=== PATIENT | female | born 1935 | race Caucasian/White ===

== ENCOUNTER → 2016-10-19 | Outpatient (CLI) | payer OTHER, BC | LOC: MOB LAB 12:00 | DX: J06.9 Acute upper respiratory infection, unspecified (principal); J02.9 Acute pharyngitis, unspecified; R05 Cough | CPT/HCPCS: 99213; G0463; 87880 ==

== ENCOUNTER 2016-10-28 12:43 | Emergency (ER) | payer OTHER, BC ==
[2016-10-28 13:04] VITALS: RESP 18; TEMP 97.2
--- NOTE | 2016-10-28 19:40 | PDOC ---
Upper Ext Injury HPI - General Chief Complaint: Upper Extremity Problem/Injury Stated Complaint: fall, right elbow/shoulder pain Date Seen by Provider: 10/28/16 Time Seen by Provider: 12:45 Source: POSITIVE: Patient Exam Limitations: POSITIVE: No limitations Nurse's Notes Reviewed & Considered: Yes - History of Present Illness Initial Comments: The patient is an 81 year old female. 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 The wind caught the door and caused the patient to fall onto her right elbow when she states that her right shoulder was "jammed upward". Incident occurred 1 hour [employer]. She's not noticed any deformity or swelling. She has pain in the posterior lateral aspect of her shoulder with abduction. Have you received a tetanus shot in the past 10 years?: Unknown Body Location Affected: REPORTS: Upper Extremity (R) Timing: REPORTS: Abrupt Duration: 1 hour Severity: Moderate Quality: REPORTS: "Pain" Location at Time of Onset: REPORTS: Other ([facility]) Context of Injury: REPORTS: Fall, Direct Blow Modifying Factors: REPORTS: Movement (Especially abduction of right shoulder) Associated Symptoms: DENIES: Arm (R), Arm (L), Tingling Distally, Numbness Distally, Loss of Feeling, Loss of Power, Other Any Prior Injuries Related to Current Complaint?: No - Patient Home Medications Home Medications: Home Medications Ascorbic Acid [Vitamin C] 500 mg PO DAILY 09/09/12 V-Krbjdjv-Hqefdhs B-12 1 each PO DAILY 09/09/12 Calcium 600 + D3 Softgel 1 each PO DAILY 09/09/12 Glucosam HCl/Chondro Joseph A/C/Mn [Glucos-Chond 500 Complex Cp] 1 each PO DAILY 09/09 Lecithin 518 mg PO DAILY 09/09/12 Lutein 10 mg PO DAILY 09/09/12 Magnesium 200 mg PO DAILY 09/09/12 Babbitt-3 Fatty Acids [Babbitt-3] 1,000 mg PO DAILY 09/09/12 Preservision Softgel 1 each PO DAILY 09/09/12 Cholecalciferol (Vitamin D3) [Vitamin D-3] 1 cap PO DAILY cap 09/10/13 Ezetimibe/Simvastatin [Vytorin 10-20 Mg Tablet] 1 tab PO QHS #90 tab 10/26/15 Lactobacillus Combination No.4 [Probiotic] 1 each PO QD cap 04/30/16 Magnesium Hydroxide [Milk Of Magnesia] 2,400 mg PO 2XW 04/30/16 Omeprazole 1 cap PO QD #90 capsule 10/02/16 Levothyroxine Sodium 1 tab PO DAILY #90 tab 10/08/16 HYDROcodone/APAP 5/325 Tab [[place] 5/325 Tab] 1 tab PO Q6H PRN #20 tablet - Patient Allergies Allergies/Adverse Reactions: Allergies Allergy/AdvReac Type Severity Reaction Status Date / Time NARCOTICS AdvReac Intermediate NAUSEA Uncoded 10/28/16 12:47 Past Medical History - heen HEENT History: Cataracts Additional HEENT History: PT HAD A PLUGGED TEAR DUCT IN RIGHT EYE. PER DR ARNOLD, SHE WAS SEEN AND HAD SURGERY BY ANOTHR SURGEON TO OPEN THE DUCT THIS WEEK. CALL PLACED TO DR LEWIS OFFICE TO BE SURE THAT IT IS OK TO PROCEED WITH CATARACT SURGERY ON 03/01/14. PT STATES SHE HAS A (LITTLE PIECE OF PLASTIC) STENT IN THE CORNER OF HER EYE AND SUTURES. SB Cardiovascular History: Hypertension, Hyperlipidemia, Other (please comment) Additional Cardiovasular History: HEART MURMUR Respiratory History: Denies History Additional Respiratory History: SEASONAL ALLERGIES Gastrointestinal History: Denies History Genitourinary History: Denies History Endocrine History: Hypothyroidism Musculoskeletal History: Osteoporosis Prosthesis or Implant: No Neurological History: Migraines Additional Neurological History: RESOLVED MIGRAINES IN 1996 Blood Disorders: Denies History Psychiatric History: Denies History History of Sexually Transmitted Diseases: No Cancer History: Breast, Skin Cancer Treatment / Date(s) of Treatment: 1998 In Past Year Been Physically Harmed or Verbally Threatened: No History of MDRO: No History of Other Communicable Diseases: No Tobacco Use: Never Smoker Alcohol Use: None Substance Use Type: None Previous Surgical History: Yes Type / Date of Surgery: T&A/ APPY/ COLONOSCOPY/ GANGLION CYST X 2/ INGUINAL HERNIA/ LEFT MASTECTOMY/ CATARACT EXT/ BREAST BX/ Anesthesia Reactions: No Malignant Hyperthermia: No Significant Family History: Heart disease Past Medical History Reviewed: Reviewed - No Changes ROS - Limitations ROS Limitations: No Limitations Constitution: REPORTS: Denies Symptoms Cardiovascular: REPORTS: Denies Cardiac Symptoms Respiratory: REPORTS: Denies Resp Symptoms Neurological: REPORTS: Denies Neuro Symptoms Gastrointestinal: REPORTS: Denies GI Symptoms Endocrine: REPORTS: Denies Symptoms Musculoskeletal: REPORTS: Joint Pain (Right shoulder and right elbow), Recent Injury (As above). DENIES: Back Pain, Neck Pain Genitourinary: REPORTS: Denies Symptoms Eyes: REPORTS: Denies Symptoms ENT: REPORTS: Denies Symptoms Skin: REPORTS: Denies Skin Symptoms Lympathic: REPORTS: Denies Lympathic Symptoms Immunologic: POSITIVE: Denies Symptoms Psychiatric: POSITIVE: Denies Psych Symptoms Upper Ext Injury Exam - General Appearance General Appearance: POSITIVE: Alert, Cooperative, No Acute Distress - Extremities Upper Extremity: POSITIVE: Normal Color, Normal Temperature, Soft Tissue Tenderness, Bony Tenderness (See diagram), Skin Intact, Limited ROM, See Diagram. NEGATIVE: Normal ROM (Range of motion limited in abduction and extension, right shoulder), Swelling, Ecchymosis, Deformity, Erythema, Pulse Deficit, Snuff Box Position Tender, Axial Thumb Load Pain Neurovascular/Tendon: POSITIVE: Sensation Normal, Motor Normal, No Vascular Compromise Skin: POSITIVE: Warm, Dry - HEENT HEENT: POSITIVE: Head Inspection Nml - Neck / Back Neck/Back: POSITIVE: Normal Inspection, Non-Tender, Painless ROM - Respiratory / CVS Respiratory / CVS: POSITIVE: Chest Non Tender, No Ecchymosis, Breath Sounds Normal, No Respiratory Distress, Heart Sounds Normal, Regular Rate/Rhythm Peripheral Pulses: Radial (R): 2+, Radial (L): 2+ - Abdomen Abdomen: Soft: (All Quadrants), Normal Bowel Sounds: (All Quadrants), Denies Tenderness: (All Quadrants), No Splenomegaly: (All Quadrants), No Hepatomegaly: (All Quadrants), No Guarding: (All Quadrants), No Rebound: (All Quadrants), No Palpable Pulse: (All Quadrants), No Palpabale Mass: (All Quadrants), No Distention: (All Quadrants), No Rigidity: (All Quadrants) Procedures - Splinting Time Splint Applied: 13:15 Location: right shoulder immobilizer Pre-Proc Neuro Vasc Exam: Normal Splint Type: Shoulder Immobilizer Splint Form: Other (Right shoulder immobilizer) Applied By:: Mid Level Provider Post-Proc Neuro Vasc Exam: Normal Images - Upper Extremities Upper Extremities: 1 - Area of palpable tenderness 2 - Area of palpable tenderness 3 - Mild discomfort on firm palpation Upper Ext Injury Progress - Results Reviewed by me Xrays/CTs/US Reviewed by me: Yes Discussed with Radiologist: No (X-ray of right shoulder and elbow shows no fractures or dislocations seen by me, radiologist interpretation pending.) Radiology Findings: X-ray right shoulder and elbow shows no fractures or dislocations seen by me; radiologist interpretation pending. - Patient's Progress Pain Medication Addressed: POSITIVE: Yes (Advil or Tylenol for [id number] pain; hydrocodone/APAP one every 6 hours for more severe pain.) School/Work Release Addressed: POSITIVE: Not Applicable Re-Examine Time: 13:33 Status: POSITIVE: Improved (Pain lasts with shoulder immobilizer), Re-Examined - Consult Counseled: POSITIVE: Patient, RE: Radiology Results, RE: DX, RE: Need for F/U Patient Care Time - Estimated PCT Patient Care Time (In Minutes): 24 Vital Signs - Recent Vital Signs Vital Signs: Vital Signs (Last 8 hours) Temp Pulse Resp BP Pulse Ox 10/28/16 12:53 97.2 F 74 18 158/83 96 - VS Reviewed Vital Signs Reviewed: Yes Discharge Clinical Impression: Shoulder strain Discharge Disposition: Discharged to Home Condition: Fair Prescriptions / Orders: HYDROcodone/APAP 5/325 Tab [[place] 5/325 Tab] 1 tab PO Q6H PRN #20 tablet PRN Reason: Pain Patient Instructions Given at Discharge: Contusion in Adults (ED), Shoulder Sprain (ED) Additional Instructions: Wear shoulder immobilizer for 3 or 4 days. Follow-up in the orthopedic clinic in 3 or 4 days. Tylenol or Advil for [id number] pain. Hydrocodone/APAP, one every 6 hours for more severe pain. Return here anytime if condition worsens in any way. Follow Up With: TREMAYNE CHÁVEZ [Primary Care Provider] - (Instructions as above. Follow-up in the orthopedic clinic. Return here anytime if condition worsens.)
--- NOTE | 2016-10-28 22:15 | DI ---
XR ELBOW 2VW,10/28/2016 12:52 PM: Clinical History: Elbow pain. Previous Exam: None at this facility. Findings: 3 views of the right elbow are obtained, and demonstrate anatomic alignment without fractures. There is a small curvilinear calcified density over the olecranon. There is no evidence of elbow joint effusion. Impression: Normal right elbow.
--- NOTE | 2016-10-28 22:15 | DI ---
XR SHOULDER MIN 2VW,10/28/2016 12:51 PM: Clinical History: Trauma Previous Exam: None at this facility. Findings: 3 views of the right shoulder are obtained, and demonstrate anatomic alignment without fractures. The re are ossified lymph nodes within the mediastinum. Mild degenerative changes of the cervical spine a nd thoracic spine. Impression: No fractures.
== END 2016-10-28 13:45 | disposition home or self-care (01) ==
LOC: ER 12:43
DX: S46.911A Strain of unspecified muscle, fascia and tendon at shoulder and upper arm level, right arm, initial encounter (principal); M25.521 Pain in right elbow; W18.39XA Other fall on same level, initial encounter; Y92.22 Religious institution as the place of occurrence of the external cause
CPT/HCPCS: 73030; 73070; 99282

== ENCOUNTER → 2016-10-29 | Outpatient (CLI) | payer OTHER, BC | LOC: MMPC 10:00 | PROVIDERS: ATTEND Orthopaedic Surgery | DX: M25.511 Pain in right shoulder (principal) | CPT/HCPCS: 99203; G0463 ==

== ENCOUNTER → 2016-10-31 | Outpatient (CLI) | payer OTHER, BC ==
[2016-10-31 09:08] LABS: BILIRUBIN,TOTAL 0.4 mg/dL (0.3-1.2); BUN/CREATININE RATIO 17.77 (6-20); CALCIUM 9.7 mg/dL (8.7-10.7); CREATININE 0.9 mg/dL (0.50-1.20); LDL CHOLESTEROL,CALCULATED 132.8 mg/dL
== END ==
LOC: LAB 08:33
PROVIDERS: ATTEND Nurse Practitioner Family
DX: E78.5 Hyperlipidemia, unspecified (principal); E03.9 Hypothyroidism, unspecified; I10 Essential (primary) hypertension
CPT/HCPCS: 36415; 80048; 82247; 82465; 82550; 82977; 83718; 84075; 84443; 84450; 84460; 84478

== ENCOUNTER → 2016-11-01 | Outpatient (CLI) | payer OTHER, BC | LOC: MMPC 09:00 | PROVIDERS: ATTEND Nurse Practitioner Family | DX: E78.5 Hyperlipidemia, unspecified (principal); E03.9 Hypothyroidism, unspecified; M81.0 Age-related osteoporosis without current pathological fracture | CPT/HCPCS: 99214; G0463; J0897 ==

== ENCOUNTER → 2016-11-06 | Outpatient (CLI) | payer OTHER, BC ==
--- NOTE | 2016-11-06 16:04 | DI ---
CT BONE DENSITOMETRY OF THE SPINE AND HIP, 11/06/2016 2:15 PM : Clinical History: Asymptomatic post menopausal patient. Screening. Previous Exam: None at this facility. 3D Quantitative CT (QCT) Bone Mineral Densitometry: The [place] scans are normal. Low dose scans are obtained of the lumbar spine and sampling is obtaine d through the midbodies of L1 and L2. The average volumetric bone mineral density (BMD) of the lumbar spine is 77.7 mg/cm3. This value corresponds to a volumetric T-score of -3.4 and Z-score of 0.3 as a ssessed by this BMD software. Volumetric 3D QCT and areal DEXA T-scores and Z-scores are not directly equivalent. Using the [employer]'s (ACR) volumetric QCT trabecular spine BMD conv ersion table that is closely equivalent to the areal WHO diagnostic categories, this patient falls in to the category of osteoporosis. CT X-Ray Absorptiometry (CTXA) Hip Bone Mineral Densitometry: Low dose scans are obtained through the hips for assessment of bone mineral density (BMD) and T-score s and Z-scores of the left hip. Total hip BMD: 0.556 mg/cm2 T-score: -3.2 Z-score: Femoral neck BMD: 0.522 mg/cm2 T-score: -2.5 Z-score: Note: T-scores of the spine and hip exhibit discordant readings approximately 40% of the time in eval uated patients. Changes in BMD determined either by volumetric QCT or areal DEXA are more reliable in assessment of change in a patient's BMD status rather than changes in T-scores. The CTXA hip CT bone mineral density measurements and the resultant T-scores and Z-scores are exact hip DEXA scan equival ents. The femoral neck T-score can be used in the WHO's FRAX program for assessing an untreated patie nt's 10 year fracture risk. 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
== END ==
LOC: CT 14:06
PROVIDERS: ATTEND Nurse Practitioner Family
DX: M81.0 Age-related osteoporosis without current pathological fracture (principal)
CPT/HCPCS: 77078

== ENCOUNTER → 2016-11-12 | Outpatient (CLI) | payer OTHER, BC | LOC: MMPC 10:00 | PROVIDERS: ATTEND Orthopaedic Surgery | DX: S46.911A Strain of unspecified muscle, fascia and tendon at shoulder and upper arm level, right arm, initial encounter (principal) | CPT/HCPCS: 99212 ==

== ENCOUNTER → 2017-04-19 | Outpatient (CLI) | payer OTHER, BC ==
[2017-04-19 08:01] LABS: CHOL/HDL RATIO 3.13 RATIO (0-4.0)
[2017-04-19 08:08] LABS: BUN/CREATININE RATIO 21.25 (6-20); CALCIUM 9.4 mg/dL (8.7-10.7)
== END ==
LOC: LAB 06:58
PROVIDERS: ATTEND Nurse Practitioner Family
DX: E78.5 Hyperlipidemia, unspecified (principal); E03.9 Hypothyroidism, unspecified
CPT/HCPCS: 36415; 80048; 82247; 82465; 82550; 82977; 83718; 84075; 84443; 84450; 84460; 84478

== ENCOUNTER → 2017-05-02 | Outpatient (CLI) | payer OTHER, BC | LOC: MMPC 09:00 | PROVIDERS: ATTEND Nurse Practitioner Family | DX: E78.5 Hyperlipidemia, unspecified (principal); K21.9 Gastro-esophageal reflux disease without esophagitis; E03.9 Hypothyroidism, unspecified; M81.0 Age-related osteoporosis without current pathological fracture; M20.41 Other hammer toe(s) (acquired), right foot | CPT/HCPCS: 99214; G0463; J0897 ==